=== PATIENT | female | born 1985 ===

== ENCOUNTER 2025-02-10 11:51 | Emergency (ER) | payer OTHER ==
[~2025-02-10] VITALS: Ht 165.1 cm; Wt 90.7 kg
[2025-02-10] MEDS ORDERED: HYDROmorphone HCl/Pf 1MG SYR IV ONE (12:05)
[2025-02-10] MEDS ORDERED: Ondansetron HCl 2 MG / ML 2ML Vial IV ONE (12:05)
[2025-02-10] MEDS ORDERED: NS 1,000 ML IV SCH (12:35)
[2025-02-10] MEDS ORDERED: Ketamine HCl 100 MG / ML 5ML Vial IV ONE (12:50)
[2025-02-10] MEDS ORDERED: Ketorolac Tromethamine 15mg Vial IV ONE (13:25)
[2025-02-10] MEDS ORDERED: Robaxin750 MG PO ×2 (13:35→15:06)
[2025-02-10] MEDS ORDERED: OXAYDO5 M1 PO ×2 (13:35→15:06)
== END 2025-02-10 14:26 | disposition home or self-care (01) ==
LOC: ER 11:51
DX: S82.842A Displaced bimalleolar fracture of left lower leg, initial encounter for closed fracture (principal); S93.05XA Dislocation of left ankle joint, initial encounter; Z88.0 Allergy status to penicillin; W10.9XXA Fall (on) (from) unspecified stairs and steps, initial encounter; Y93.E9 Activity, other interior property and clothing maintenance
CPT/HCPCS: 27788; 73600; 96374-59; 96375-59; 99152; 99283-25; J1171; J1885; J2405; J2704; J7030